=== PATIENT | male | born 1960 | race Caucasian/White ===

== ENCOUNTER 2024-05-13 18:41 | Emergency (ER) | payer OTHER, SELFPAY ==
[2024-05-13 18:45] VITALS: BP 162/84
--- NOTE | 2024-05-13 22:30 | ED.GENMED ---
History of Present Illness
General
Chief Complaint: Skin Problem
Source: patient
Exam Limitations: none
Time Seen by Provider: 05/13/24 21:25
Nursing documentation reviewed up to this point in time: agreed with
History of Present Illness
History of Present Illness:
63-year-old male presenting to the emergency department with concerns of a laceration to his right thumb prior to arrival from a saw that he was using cutting aditya. He claims that he has some vague paresthesias distally but denies any complete
numbness or weakness. Able to range at the joint.
Review of Systems
Review of Systems
Allergies reviewed?: Yes
All Other Systems: ROS reviewed and negative except as documented in HPI and ROS
Phy Exam
Physical Exam
Physical Exam:
GENERAL: Alert , in no apparent distress
EYE: pupils equal and reactive
NECK: Supple, no significant adenopathy.
ENT: o/p clr, mmm.
CARDIAC: Regular rate and rhythm .
LUNGS: Clear breath sounds bilaterally, no acute respiratory distress, no wheezes/rales/rhonchi
ABDOMEN: Soft, without focal tenderness, no r/g, no cvat
NEUROLOGICAL: Alert and oriented, no focal neuro deficits
SKIN: 3 cm laceration to the right thumb just below the IPJ subcutaneous in depth. No bony involvement no foreign body seen. Warm and dry, skin intact.
MUSCULOSKELETAL: No edema, well perfused.
PSYCH: Normal and appropriate interaction.
Course
Orders/Labs/Results
Orders:
Orders
05/13/24 21:26
CR Hand - Right Min 3 Views Urgent
Comment:
Reason For Exam: hand laceration
Vital Signs
Initial and Last Documented VS:
Initial Vital Signs
Temp Pulse Resp BP Pulse Ox
98.3 F 70 20 162/84 99
05/13/24 18:45 05/13/24 18:45 05/13/24 18:45 05/13/24 18:45 05/13/24 18:45
Last Documented Vital Signs
Temp Pulse Resp BP Pulse Ox
98.3 F 70 20 162/84 99
05/13/24 18:45 05/13/24 18:45 05/13/24 18:45 05/13/24 18:45 05/13/24 18:45
Procedures
Laceration Closure
Right Anterior First Finger:
Status of Wound: clean
Size of Wound in cm: 3
Description of Wound Edges: ragged
Preparation: cleaned with saline
Anesthesia: Marcaine
Revision/Debridement: minor revision and irrigate-direct pressure
Wound exploration: explored to base- no FB and no tendon involvement
Type of Closure: single layer closure
Skin Closure Material: 4-0 nylon
Number of sutures: 5
MDM/Problems Addressed
MDM/Problems Addressed:
63-year-old male presenting to the emergency department with concerns of a laceration to his right thumb. This was cleaned thoroughly and closed with 5 stitches. He was placed in a splint and otherwise will follow-up closely with primary care or
Ortho for reassessment and suture removal in 12 to 14 days. Return precautions given for any signs of infection.
*Critical Care Note
Total Time (30-74mins, 75-104mins- exclusive of procedures): Not Applicable
ED Attending Note
-
Portions of this chart may have been created with voice recognition software.� Occasional wrong word or��sound alike� substitutions may have occurred due to the inherent limitations of voice recognition software.
Discharge Plan
Departure
Patient Disposition: Home (Routine Discharge)
Date of Disposition: 05/13/24
Time of Disposition: 22:34
Patient with high blood pressure during this ER visit?: No
Condition: Good
Covid-19: Not Applicable
Discharge Problem:
Laceration of thumb
Instructions: Laceration Repair With Stitches ED
Prescriptions:
No Action
[id number] serr [Osteo Bi-Flex (5-Loxin)] 1 EACH tablet
1 ea PO DAILY
multivitamin with folic acid [Tab-A-Luz Elena] 1 TABLET tablet
1 tab PO DAILY
hydrocodone-acetaminophen 1 TABLET tablet
1 - 2 tab PO Q4HPRN PRN (Reason: moderate to severe pain) Qty: 20 0RF
Referrals:
Nas Abernathy MD [Active] - Follow up in 5-7 days
UNKNOWN - PT DOES,NOT KNOW [Family Provider] -
Stand Alone Forms: Return to Work
Activity Restrictions/Additional Instructions:
You came to the emergency department today with concerns of laceration to your thumb. This was closed with 5 stitches. Please get the area clean covered and follow-up closely with Ortho or primary care in 12 to 14 days for suture removal. Return
to the emergency department for any worsening, new or concerning symptoms.
Interventions
Interventions:
*Risk Screen - Suicide Last Done: 05/13/24 18:45
*General Assessment Last Done: 05/13/24 18:45
*Neglect/Abuse Screening Last Done: 05/13/24 18:45
ED-Skin Assessment Last Done: 05/13/24 20:26
Discharge Date and Time
Print Language: BARBADIAN
[2024-05-13] MEDS: ADACEL 0.5 ML IM (22:38)
== END 2024-05-13 22:45 | disposition home or self-care (01) ==
LOC: EMR 18:41
PROVIDERS: EMERGENCY PHYSICIAN Emergency Medicine
DX: S61.011A Laceration without foreign body of right thumb without damage to nail, initial encounter (principal); R20.2 Paresthesia of skin; W31.2XXA Contact with powered woodworking and forming machines, initial encounter; Z23 Encounter for immunization; Z88.1 Allergy status to other antibiotic agents; Z87.891 Personal history of nicotine dependence
CPT/HCPCS: 99283; 90471; 12002; 73130; 90715